=== PATIENT | male | born 1995 | race Caucasian/White ===

== ENCOUNTER 2024-01-05 16:28 | Emergency (ER) | payer OTHER ==
[2024-01-05 16:38] VITALS: BP 117/63; PULSE 72; RESP 16; TEMP 98.2; BMI 19.7
== END 2024-01-05 18:04 | disposition home or self-care (01) ==
LOC: JERFT 16:28
DX: S00.03XA Contusion of scalp, initial encounter (principal); R51.9 Headache, unspecified; V49.40XA Driver injured in collision with unspecified motor vehicles in traffic accident, initial encounter; Y93.I9 Activity, other involving external motion; Y92.410 Unspecified street and highway as the place of occurrence of the external cause
CPT/HCPCS: 99282-25

== ENCOUNTER 2024-04-12 04:12 | Day surgery (SDC) | payer BC ==
[2024-04-11 09:39] VITALS: BMI 19.7
[2024-04-12] MEDS ORDERED: MIDAZOLAM HCL 2 MG/2 ML SINGLE DOSE VIAL ONE (09:49)
[2024-04-12 10:54] VITALS: BP 117/57; PULSE 58; RESP 19; TEMP 97.8
== END 2024-04-12 11:06 | disposition home or self-care (01) ==
LOC: JASU-ENDO 04:12
PROVIDERS: ATTEND Internal Medicine Gastroenterology
PROC: 0DB68ZX Excision of Stomach, Via Natural or Artificial Opening Endoscopic, Diagnostic (ICD-10-PCS; 2024-04-12)
PROC: 0DB98ZX Excision of Duodenum, Via Natural or Artificial Opening Endoscopic, Diagnostic (ICD-10-PCS; principal; 2024-04-12 08:45)
DX: K29.50 Unspecified chronic gastritis without bleeding (principal)
CPT/HCPCS: 88305-TC; 88342-TC